=== PATIENT | female | born 1935 | race Caucasian/White ===

== ENCOUNTER 2016-08-05 15:26 | Inpatient (IN) | payer MEDICARE, OTHER ==
[~2016-08-05] VITALS: Ht 154.9 cm; Wt 56.8 kg
--- NOTE | ~2016-08-05 | CN ---
PATIENT NAME:KYRA POWERS MEDICAL RECORD: [id number] : 39 LOCATION:[id number] ADMIT DATE: 08/05/16 ACCOUNT: [id number] CONSULTING PHYSICIAN: JERED MCKEON MD REFERRING PHYSICIAN: BEBE SIMPSON DO DATE OF CONSULTATION: 08/07/2016 The patient admitted by Dr. Bebe Simpson. She is a 80-year-old female who had closed head injury when she sustained left occipital fracture and a contrecoup right frontal contusion. The patient has been having some loss of memory and now moderate headache. I saw the patient in the morning with her daughter. The patient states that her headache is better, it is improving. She does not have severe pain anymore, although the memory for recent facts is still lagging. She is lying in bed in no acute distress. I discussed with her daughter most likely, we need to get physical therapy to get her out of bed and help her with gait training. If she does well, we probably can send her home on Tuesday. If she is to need some inpatient assistance, we are going to try to transfer her to rehab on Tuesday as well. On neurologic exam, her GCS today was 14. She has no focal motor deficit. Her sensory exam was grossly entirely normal and she is in no acute distress. I personally reviewed the CAT scan with her daughter and showed her the fracture and the contusion; very minimal contusion on the right frontal lobe. She understood the prognosis, outcome and realistic expectations. She had the opportunity to ask questions, had questions answered and states she understands and she will talk to the other siblings. TRANSINT:[id number] Voice Confirmation ID: [id number] DOCUMENT ID: [id number] JERED MCKEON MD CC: [id number] DICTATION DATE: 08/07/16 1010 FILM PRINTER: 08/07/16 1343 ADM IN [facility] [id number] [place] [address]
[2016-08-05 17:15] LABS: BASOPHILS 0.1 % (0-2); EOSINOPHILS 0.1 % (0-7); HEMATOCRIT 44.1 % (36.0-48.0); HEMOGLOBIN 14.7 g/dL (12-16); IMMATURE GRANULOCYTES 0.5 % (0-5); LYMPHOCYTES 4.1 % (15-50); MCH 30.8 pg (26.0-34.0); MCHC 33.3 g/dL (31.0-37.0); MCV 92.5 fL (80.0-100.0); MEAN PLATELET VOLUME 9.6 fL (7.4-10.4); MONOCYTES 7.3 % (2-11); NEUTROPHILS 87.9 % (40-80); PLATELET COUNT 166 10x3/uL (130-400); RBC 4.77 10x6/uL (4.00-5.40); RDW 13.4 % (11.5-14.5); WBC 13.5 10x3/uL (4.8-10.8)
[2016-08-05 17:29] LABS: APTT 21.4 SECONDS (22.8-39.4); INR 0.98 (0.85-1.17); PROTIME 12.9 SECONDS (11.6-15.0)
[2016-08-05 17:35] LABS: ALBUMIN 3.9 g/dL (3.4-5.0); ALKALINE PHOSPHATASE 70 U/L (46-116); ALT (SGPT) 29 U/L (10-68); CALC OSMOLALITY 277 mosm/kg (275-300); CALCIUM 8.8 mg/dL (8.5-10.1); CHLORIDE - SERUM 103 mmol/L (98-107); CREATININE - SERUM 0.7 mg/dL (0.6-1.3); GLUCOSE 111 mg/dL (74-106); POTASSIUM - SERUM 3.5 mmol/L (3.5-5.1); PROTEIN - SERUM 7.3 g/dL (6.4-8.2); SODIUM 139 mmol/L (136-145); UREA NITROGEN 10 mg/dL (7-18); eGFR NON AFRICAN AMERICAN 86 mL/min (90-120)
[2016-08-05 17:40] LABS: TROPONIN-I < 0.017 ng/mL (0.000-0.060)
[2016-08-05 18:04] LABS: APPEARANCE CLEAR (CLEAR); BILIRUBIN NEGATIVE (NEGATIVE); COLOR YELLOW (YELLOW); GLUCOSE NEGATIVE (NEGATIVE); KETONE MODERATE mg/dL (NEGATIVE); LEUKOCYTE ESTERASE NEGATIVE (NEGATIVE); NITRITE NEGATIVE (NEGATIVE); PROTEIN NEGATIVE (NEGATIVE); UROBILINOGEN NORMAL (NORMAL)
[2016-08-05 18:54] VITALS: BP 145/85; Ht 154.9 cm; Wt 56.8 kg
[2016-08-05 19:00] VITALS: BP 145/85
--- NOTE | 2016-08-05 19:15 | NUR ---
ASSESSSMENT COMPLETED PER FLOW SHEETS. PT A/O X4, DENIES PAIN OR ANY DISCOMFORT AT THIS TIME. SR ON CM. LUNG SOUNDS CLEAR TO ALL MIMS, UNLABORED. ON RA. PPP. CALL LIGHT IN REACH. WILL CONT TO MONITOR.
--- NOTE | 2016-08-05 19:25 | NUR ---
DR SIMPSON HERE AT BEDSIDE. ORDERS REC'D. WILL CONT MONITOR.
--- NOTE | 2016-08-05 20:30 | NUR ---
ASISSTED TO BSC. VOIDS WITHOUT DIFFIC. PT MELISSA WELL
--- NOTE | 2016-08-05 21:00 | NUR ---
FAMILY VISITING AT BEDSIDE. UPDATED AND QUESTIONS ANSWERED.
[2016-08-05 22:00] VITALS: BP 103/87
[2016-08-05 23:00] VITALS: BP 102/67
--- NOTE | 2016-08-05 23:00 | NUR ---
REASSESSMENT COMPLETED. SEE FLOW SHEETS FOR ALL FINDINGS. NO ACUTE CHANGES IN PT'S STATUS NOTED. VSS. NO NEEDS VOICES. CALL LIGHT IN REACH. WILL CONT TO MONITOR.
[2016-08-06] VITALS (14 sets, daily range): BP systolic 91–115; BP diastolic 48–77
--- NOTE | 2016-08-06 01:00 | NUR ---
PT RESTING QUIETLY WITHOUT DISTRESS. VSS. NO CHANGES IN NEURO STATUS. NO COMPLAINTS AT THIS TIME. CPOC
--- NOTE | 2016-08-06 03:00 | NUR ---
REASSESSMENT COMPLETED. SEE FLOW SHEETS FOR ALL FINDINGS. NO ACUTE SIGNS OF DISTRESS OR CHAGES IN NEURO STATUS. VSS. CPOC.
--- NOTE | 2016-08-06 05:30 | NUR ---
PT TO CT VIA BED. PT MELISSA WELL.
--- NOTE | 2016-08-06 07:16 | NUR ---
SITTING UP IN BED AWAKE AT THIS TIME. PT IS ALERT AND ORIENTED. DENIES ANY NEEDS. NO ACUTE DISTRESS NOTED. WILL CONTINUE PLAN OF CARE.
--- NOTE | 2016-08-06 09:16 | NUR ---
NO ACUTE DISTRESS NOTED. NO CHANGE. PT DENEIS ANY NEEDS. WILL CONTINUE PLAN OF CARE.
--- NOTE | 2016-08-06 10:30 | HP ---
PATIENT: KYRA BELCHER MEDICAL RECORD: [id number] ACCOUNT: [id number] LOCATION:[facility] D.2302 : 37 ADMISSION DATE: 08/05/16 HISTORY AND PHYSICAL EXAMINATION HISTORY OF PRESENT ILLNESS: Ms. Belcher is a 80-year-old white female that apparently fell while volunteering at [employer] and struck the back of her head. She does not remember much of the event. She is brought to the Emergency Room where she was found to have a fracture of the occipital bone and a small subarachnoid bleed. Neurologically, she is intact. She is pleasant, alert. She has no focal deficits on her neurological exam. The Emergency Room physician has talked with Dr. Walter, on-call for neurosurgery, who will be seen in consultation. She appears stable at this time and is in the ICU for further evaluation. PAST MEDICAL HISTORY: She has been very healthy. She denies any troubles with any cardiac problems, pulmonary problems, GI problems, previous cancers. She did state that she had a cardiac workup a few years ago by Dr. Castano and everything was okay. PREVIOUS SURGERIES: Include partial removal of her thyroid for a suspicious nodule that was benign and a tonsillectomy as a child. ALLERGIES: None known. MEDICATIONS: She takes no prescription medications. She does take some occasional vitamins. FAMILY HISTORY: Noncontributory. SOCIAL HISTORY: The patient does not smoke or drink. She is retired. She cares for her , who has Lewy body dementia. REVIEW OF SYSTEMS: She denies any fever, chills, sweats. No nausea or vomiting. She did have a little headache earlier, but none now. She denies any visual changes. She denies any motor weakness or numbness. She denies any abdominal pain. VITAL SIGNS: Temperature is 97.9, pulse is 90, respirations 10, blood pressure is 145/87 and pulse ox is 97 %. IMAGING: Chest x-ray was negative. CT of the spine revealed no acute issues. PHYSICAL EXAMINATION: HEENT: Head is normocephalic, sclerae nonicteric. External ocular muscles are intact with full range of motion. TMs reveal no blood. Tongue is in the midline. NECK: Soft and supple. No bruits. HEART: Regular. LUNGS: Clear. ABDOMEN: Soft. She moves all of her extremities without any restriction. Fence Installer Helper are equal. No edema. PSYCHIATRIC: Mood and affect are normal. She is oriented. IMPRESSION: HISTORY AND PHYSICAL [id number] KYRA BELCHER 1. Fall. 2. Subarachnoid hemorrhage. 3. Occipital bone fracture. PLAN: Admit to ICU, monitoring for neuro changes. We will do neuro checks, neurosurgical consult with Dr. Jack, see his recommendations. TRANSINT:[id number] Voice Confirmation ID: [id number] DOCUMENT ID: [id number] BEBE SIMPSON DO at 1030 CC: [id number] DICTATION DATE: 08/05/161919 BANK ANALYST: 08/05/16 2242 ADM IN [facility] [address] [place] [address]
--- NOTE | 2016-08-06 11:11 | NUR ---
CALLED REPORT FOR PT TO BE TRANSFERRED TO ROOM 2235, REPORT GIVEN TO [facility]. NOTED THEY STATED ROOM PT TO BE TRANSFERRED TO IS CURRENTLY DIRTY AND IS NOT READY FOR TRANSFER. WILL TRANSFER PT WHEN ROOM 2235 IS CLEAN. PT ALERT AND ORIENTED. NO ACUTE DISTRESS NOTED. NEURO CHECKS WNL. NO CHANGE. WILL CONTINUE PLAN OF CARE.
--- NOTE | 2016-08-06 11:55 | NUR ---
PT TRANSFERRED AT THIS TIME VIA WHEELCHAIR ACCOMPANIED BY HOSPITAL STAFF AND PTS FAMILY. NO ACUTE DISTRESS NOTED. NO FURTHER ACTIONS.
--- NOTE | 2016-08-06 12:00 | NUR ---
RECEIVED TO FLOOR FROM ICU, FAMILY AT BEDSIDE, DENIES NEEDS, WILL CONTINUE TO MONITOR
--- NOTE | 2016-08-06 12:45 | NUR ---
COMPLAINS OF HEADACHE REQUEST PAIN MEDS
--- NOTE | 2016-08-06 19:44 | NUR ---
ASSESSMENT COMPLETED, NO ACUTE DISTRESS NOTED, DENIES NEEDS AT THIS TIME, IV TO R AC INFUSING AT KVO, SR'S UP, CL IN REACH, WILL MONITOR
--- NOTE | 2016-08-06 21:18 | NUR ---
IV TO R AC DISLODGED, DC'D WITH CATH INTACT, PT REFUSES TO BE RESITED AT THIS TIME, STATE "I WANT TO GET SOME SLEEP", CL IN REACH
--- NOTE | 2016-08-06 23:10 | NUR ---
PT EASILY AROUSES, CONTINUES TO REFUSE SCD'S DUE TO "ACHY" FEET AND LEGS, CL IN REACH
--- NOTE | 2016-08-06 23:16 | NUR ---
RESTING WITH EYES CLOSED, RESP WITH EASE, NO DISTRESS NOTED, FALL PREAUTIONS IN PLACE, CL IN REACH
[2016-08-07] VITALS: BP 151/77
[2016-08-07 04:00] VITALS: BP 152/87
--- NOTE | 2016-08-07 05:22 | NUR ---
20 G IV PLACED IN R FOREARM X1 ATTEMPT, MELISSA WELL, FLUIDS RESTARTED PER ORDERS, CL IN REACH
--- NOTE | 2016-08-07 07:25 | NUR ---
PATIENT RESTING IN HER BED. PATIENT STATES "I DIDN'T SLEEP LAST NIGHT. I WAS IN SO MUCH PAIN". PATIENT DENIES ANY NEEDS AT PRESENT TIME. CALL LIGHT IN PATIENT'S REACH. WILL MONITOR PATIENT.
[2016-08-07 08:39] VITALS: BP 126/70
[2016-08-07 13:11] VITALS: BP 111/58
--- NOTE | 2016-08-07 14:01 | NUR ---
PATIENT IS RESTING QUIETLY WITH HER EYES CLOSED. NO S/S OF DISTRESS NOTED. FAMILY AT THE BEDSIDE. CALL LIGHT IN PATIENT'S REACH. WILL MONITOR PATIENT.
--- NOTE | 2016-08-07 15:41 | NUR ---
PATIENT RESTING IN THE BED WITH FAMILY AT THE BEDSIDE. SCHEDULED DECADRON 4 MG IV GIVEN TO PATIENT. PATIENT TOLERATED WELL. PATIENT DENIES ANY NEEDS AT PRESENT TIME. PATIENT IS AWAKE, ALERT, AND ORIENTED X4. BILATERAL PUPILS ARE 3MM AND BRISK. NO NEUROLOGICAL DEFICITS NOTED. CALL LIGHT IN PATIENT'S REACH. WILL MONITOR.
[2016-08-07 16:44] VITALS: BP 135/86
[2016-08-07 19:00] VITALS: BP 102/52
--- NOTE | 2016-08-07 19:30 | NUR ---
REC'D IN BED WITH EYES CLOSED EASILY AROUSED WHEN NAME IS CALLED. RESP EVEN AND UNLABORED WITH NO DISTRESS NOTED. ASSESSMENT COMPLETED. NO C/O NOTED OR VOICED. C/L IN REACH AT BEDSIDE.
[2016-08-08] VITALS: BP 114/68
--- NOTE | 2016-08-08 00:21 | NUR ---
PATIENT RESTING WITH EYES CLOSED AND NO VISIBLE SIGNS OF DISTRESS. BED IN LOWEST POSITION AND CALL LIGHT WITHIN REACH.
[2016-08-08 04:00] VITALS: BP 107/55
[2016-08-08 08:14] VITALS: BP 102/60
--- NOTE | 2016-08-08 09:20 | NUR ---
JOLANTA ESTRADA. CALL LIGHT IN REACH.
[2016-08-08] MEDS ORDERED: MEDROL DOSE PACK4 MG PO (11:24)
[2016-08-08 12:41] VITALS: BP 100/59
--- NOTE | 2016-08-08 14:30 | NUR ---
DISCHARGE INSTRUCTIONS COMPLETED WITH PATIENT. D/C IV WITH CATHETER INTACT. PATIENT'S SONS PRESENT FOR DISCHARGE INSTRUCTIONS. ALL DENY QUESTIONS. PATIENT LEFT VIA WHEELCHAIR WITH OUTPATIENT INTERVIEWING CLERK AND FAMILY.
== END 2016-08-08 14:30 | disposition home or self-care (01) | DRG 87 ==
LOC: D.ER 15:26 → D.ICU 17:45 → D.MS 17:45
PROVIDERS: Nurse Practitioner Family; ADMIT Family Medicine
DX: S06.6X0A Traumatic subarachnoid hemorrhage without loss of consciousness, initial encounter (principal); W17.89XA Other fall from one level to another, initial encounter; S02.11HA Other fracture of occiput, left side, initial encounter for closed fracture; S06.2X0A Diffuse traumatic brain injury without loss of consciousness, initial encounter; R40.2143 Coma scale, eyes open, spontaneous, at hospital admission; R40.2363 Coma scale, best motor response, obeys commands, at hospital admission; R40.2253 Coma scale, best verbal response, oriented, at hospital admission

== ENCOUNTER 2016-08-12 11:16 | Observation (INO) | payer MEDICARE, OTHER ==
[~2016-08-12] VITALS: Ht 154.9 cm; Wt 57.3 kg
[~2016-08-12 11:16] MED LIST: MEDROL DOSE PACK4 MG PO
[2016-08-12 14:30] LABS: APPEARANCE CLEAR (CLEAR); BILIRUBIN NEGATIVE (NEGATIVE); COLOR DK YELLOW (YELLOW); GLUCOSE NEGATIVE (NEGATIVE); KETONE MODERATE mg/dL (NEGATIVE); LEUKOCYTE ESTERASE NEGATIVE (NEGATIVE); NITRITE NEGATIVE (NEGATIVE); PROTEIN NEGATIVE (NEGATIVE); SPECIFIC GRAVITY 1.015 (1.005-1.020); UROBILINOGEN NORMAL (NORMAL)
[2016-08-12 14:34] LABS: BASOPHILS 0.1 % (0-2); EOSINOPHILS 0.8 % (0-7); HEMATOCRIT 45.8 % (36.0-48.0); LYMPHOCYTES 9.4 % (15-50); MCH 30.8 pg (26.0-34.0); MCHC 34.9 g/dL (31.0-37.0); MCV 88.1 fL (80.0-100.0); MEAN PLATELET VOLUME 9.2 fL (7.4-10.4); MONOCYTES 10.6 % (2-11); NEUTROPHILS 77.1 % (40-80); RDW 12.8 % (11.5-14.5); WBC 12.7 10x3/uL (4.8-10.8)
[2016-08-12 14:35] LABS: PLATELET COUNT 264 10x3/uL (130-400)
[2016-08-12 14:56] LABS: ALKALINE PHOSPHATASE 69 U/L (46-116); ALT (SGPT) 38 U/L (10-68); BILIRUBIN - TOTAL 1.17 mg/dL (0.2-1.3); CALC OSMOLALITY 252 mosm/kg (275-300); CHLORIDE - SERUM 90 mmol/L (98-107); CREATININE - SERUM 0.6 mg/dL (0.6-1.3); GLUCOSE 98 mg/dL (74-106); POTASSIUM - SERUM 4.2 mmol/L (3.5-5.1); PROTEIN - SERUM 7.7 g/dL (6.4-8.2); SODIUM 126 mmol/L (136-145); UREA NITROGEN 12 mg/dL (7-18); eGFR NON AFRICAN AMERICAN > 90 mL/min (90-120)
--- NOTE | 2016-08-12 20:35 | NUR ---
PT ARRIVED ON UNIT VIA STRETCHER, PT IS ALERT AND ORIENTED, ON RA WITH 98% O2 SAT. LUNGS CLEAR IN ALL LOBES, S1S2, CM-NSR, PATENT LEFT PIV WITH NS INFUSING VIA PUMP, ABODMEN IS SOFT AND FLAT WITH ACTIVE BS, ALL PPP, VSS, CALL LIGHT IN REACH
[2016-08-12 20:43] VITALS: BP 127/85; Ht 154.9 cm; Wt 57.3 kg
[2016-08-12 21:00] VITALS: BP 120/80
--- NOTE | 2016-08-12 21:16 | NUR ---
ASSISTED TO BEDSIDE COMMODE 200 CC ABER URINE NOTED. VSS NO NEW CHANGES WILL CONTINUE TO MONITOR
[2016-08-12 23:00] VITALS: BP 127/82
--- NOTE | 2016-08-12 23:14 | NUR ---
REASSESSMENT COMPLETE, NO CHANGES NOTED, PT RESTING AT THIS TIME, DENIES ANY NEEDS, VSS, CALL LIGHT IN REACH
[2016-08-13] VITALS (14 sets, daily range): BP systolic 96–129; BP diastolic 56–80
--- NOTE | 2016-08-13 03:24 | NUR ---
REASSESSMENT COMPLETE PER FLOW SHEET. VSS NO NEW CHANGES. WILL CONTINUE TO MONITOR.
[2016-08-13 05:05] LABS: BASOPHILS 0.1 % (0-2); EOSINOPHILS 2.6 % (0-7); HEMATOCRIT 41.7 % (36.0-48.0); HEMOGLOBIN 14.5 g/dL (12-16); IMMATURE GRANULOCYTES 3.3 % (0-5); LYMPHOCYTES 13.5 % (15-50); MCH 30.9 pg (26.0-34.0); MCHC 34.8 g/dL (31.0-37.0); MCV 88.9 fL (80.0-100.0); MEAN PLATELET VOLUME 9.1 fL (7.4-10.4); NEUTROPHILS 66.5 % (40-80); PLATELET COUNT 253 10x3/uL (130-400); RBC 4.69 10x6/uL (4.00-5.40)
[2016-08-13 05:07] LABS: WBC 8.9 10x3/uL (4.8-10.8)
[2016-08-13 05:11] LABS: CALC OSMOLALITY 266 mosm/kg (275-300); CALCIUM 7.7 mg/dL (8.5-10.1); CARBON DIOXIDE 25.5 mmol/L (21.0-32.0); CHLORIDE - SERUM 101 mmol/L (98-107); CREATININE - SERUM 0.6 mg/dL (0.6-1.3); GLUCOSE 88 mg/dL (74-106); PHOSPHOROUS 3.8 mg/dL (2.5-4.9); POTASSIUM - SERUM 4.6 mmol/L (3.5-5.1); SODIUM 134 mmol/L (136-145); UREA NITROGEN 12 mg/dL (7-18); eGFR NON AFRICAN AMERICAN > 90 mL/min (90-120)
--- NOTE | 2016-08-13 19:15 | NUR ---
SHIFT ASSESSMENT COMPLETED. SEE ASSESSMENT FLOWSHEET. NEURO INTACT. HAND GRASPS EQUAL AND STRONG BILATERALLY. LEFT HAND PIV WITH NS @ 125ML/HR. IV SITE INTACT. REPORTS GETTING UP AND DOWN TO COMMODE WITHOUT ASSISTANCE. Q4H VITALS ASSESSED. WILL MONITOR.
--- NOTE | 2016-08-13 20:45 | NUR ---
WARM BLANKET GIVEN PER REQUEST.
--- NOTE | 2016-08-13 22:15 | NUR ---
EYES CLOSED. LAYING ON LEFT SIDE. T.V. OFF. NO ACUTE DISTRESS NOTED. WILL MONITOR.
--- NOTE | 2016-08-13 23:20 | NUR ---
VITAL SIGNS ASSESSED. AWAKE. TURNED SELF TO RT SIDE. REPORTS NOT ABLE TO GET ANY SLEEP. SHE REPORTED SHE MAY WANT TYLENOL AFTER WHILE. WILL MONITOR.
--- NOTE | 2016-08-14 01:30 | NUR ---
EYES CLOSED. NO ACUTE DISTRESS NOTED. WILL MONITOR.
--- NOTE | 2016-08-14 03:40 | NUR ---
AWOKE. WANTING TYLENOL FOR HEADACHE AT A 2-3 ON NUMBER SCALE. VITALS ASSESSED. IV SITE WNL. REPORTS BEING UP TO URINATE OFTEN. WILL MONITOR.
[2016-08-14 03:43] VITALS: BP 129/86
[2016-08-14 04:42] LABS: BASOPHILS 0.3 % (0-2); EOSINOPHILS 3.5 % (0-7); HEMATOCRIT 40.6 % (36.0-48.0); HEMOGLOBIN 13.9 g/dL (12-16); IMMATURE GRANULOCYTES 3.8 % (0-5); LYMPHOCYTES 12.3 % (15-50); MCH 30.8 pg (26.0-34.0); MCHC 34.2 g/dL (31.0-37.0); MEAN PLATELET VOLUME 9.1 fL (7.4-10.4); MONOCYTES 18.7 % (2-11); NEUTROPHILS 61.4 % (40-80); PLATELET COUNT 244 10x3/uL (130-400); RBC 4.51 10x6/uL (4.00-5.40); RDW 13.2 % (11.5-14.5); WBC 7.6 10x3/uL (4.8-10.8)
[2016-08-14 04:59] LABS: CALC OSMOLALITY 262 mosm/kg (275-300); CALCIUM 7.6 mg/dL (8.5-10.1); CARBON DIOXIDE 23.7 mmol/L (21.0-32.0); CHLORIDE - SERUM 100 mmol/L (98-107); CREATININE - SERUM 0.6 mg/dL (0.6-1.3); GLUCOSE 98 mg/dL (74-106); POTASSIUM - SERUM 4.2 mmol/L (3.5-5.1); SODIUM 132 mmol/L (136-145); eGFR NON AFRICAN AMERICAN > 90 mL/min (90-120)
[2016-08-14 05:09] LABS: UREA NITROGEN 8 mg/dL (7-18)
[2016-08-14 12:00] VITALS: BP 127/73
[2016-08-14 12:30] LABS: CALC OSMOLALITY 263 mosm/kg (275-300); CALCIUM 7.8 mg/dL (8.5-10.1); CARBON DIOXIDE 27.5 mmol/L (21.0-32.0); CHLORIDE - SERUM 99 mmol/L (98-107); CREATININE - SERUM 0.6 mg/dL (0.6-1.3); GLUCOSE 88 mg/dL (74-106); POTASSIUM - SERUM 3.9 mmol/L (3.5-5.1); SODIUM 133 mmol/L (136-145); UREA NITROGEN 9 mg/dL (7-18); eGFR NON AFRICAN AMERICAN > 90 mL/min (90-120)
[2016-08-14 15:00] VITALS: BP 135/79
--- NOTE | 2016-08-14 16:34 | NUR ---
0800-DR LINK AT [facility] AND PT EASILY AWAKENS-INFORMED BY SSAME SODIUM LEVEL SLIGHTLY DOWN THIS AM-STATED TO REPEAT BMP AT NOON AND CONTINUE NO FREE WATER-OK[employer]D GATORADE FOR PT -BUT REQUESTED PT TO USE LOW SUGAR GATORADE 1205-LAB DRAWN ORDERED [id number] NA-INFORMED PT TO WAIT FOR DR APPROVAL AND PLAN OF CARE PRIOR TO DISCHARGE-NOTED DR LINK CURRENTLY IN OR-PT MADE AWARE AND AGREEABLE TO SAME 1445-DR LINK IN UNIT-OK'[facility] DISCHARGE HOME-PT REQUESTED NACL 1G SCRIPT BE CALLED IN TO [facility]
--- NOTE | 2016-08-14 16:41 | NUR ---
1535-DISCHARGED IN CARE OF SISTER -L PERIPHERAL IV D/C'D TIP INTACT-VIA WHEELCHAIR-STRESSED TO MAKE APPT WITH PCP FOR THS WEEK-LAURA
== END 2016-08-14 15:45 | disposition home or self-care (01) ==
LOC: D.ER 11:16 → D.ICU 16:11 → OBSVTIME 16:11 → D.ICU 20:38
PROVIDERS: Family Medicine; Neurological Surgery; Nurse Practitioner Family; ADMIT Specialist
DX: E87.1 Hypo-osmolality and hyponatremia (principal)